=== PATIENT | male | born 1995 | race Caucasian/White ===

== ENCOUNTER → 2024-04-06 10:32 | Outpatient (BNVA) | payer OTHER, SELFPAY | DX: R50.9 Fever, unspecified (principal); J06.9 Acute upper respiratory infection, unspecified | CPT/HCPCS: 87400; 87426 ==

== ENCOUNTER → 2024-04-07 09:04 | Outpatient (BNVA) | payer OTHER, SELFPAY | PROVIDERS: Visit Provider Registered Nurse | DX: R50.9 Fever, unspecified (principal) | CPT/HCPCS: 87880 ==